=== PATIENT | male | born 1985 | race African-American/Black ===

== ENCOUNTER 2018-12-10 13:05 | Emergency (ER) | payer OTHER ==
[~2018-12-10] VITALS: Ht 175.3 cm; Wt 75.3 kg
[2018-12-10 14:04] LABS: BASO % 0.4 % (0.0-1.0); EOS # 0.1 10^3/uL (0.0-0.50); EOS % 0.7 % (0.0-3.0); HEMATOCRIT 35.8 % (42.0-52.0); HEMOGLOBIN 11.8 g/dl (13.5-17.5); LYMPH # 0.8 10^3/uL (1.5-4.5); LYMPH % 10.6 % (24.0-44.0); MEAN CORPUSCULAR HEMOGLOBIN 25.4 pg (27.0-33.0); MEAN CORPUSCULAR VOLUME 77.2 fl (80.0-96.0); MONO # 0.9 10^3/uL (0.0-0.8); MONO % 12.4 % (0.0-5.0); NEUTROPHILS # 5.7 10^3/uL (1.8-7.7); NEUTROPHILS % 75.5 % (36.0-66.0); PLATELET COUNT, AUTOMATED 190 10^3/uL (150-450); RED BLOOD COUNT 4.64 10^6/uL (4.30-6.10); WHITE BLOOD COUNT 7.5 10^3/uL (4.0-10.0)
[2018-12-10] MEDS ORDERED: NS 1,000 ML IV ONE (14:15)
[2018-12-10] MEDS ORDERED: KETOROLAC 30 MG/ML VIAL (J1885) IV ONE (14:15)
[2018-12-10 14:27] LABS: ALT/SGPT 39 U/L (12-78); AMYLASE 54 U/L (25-115); BILIRUBIN,DIRECT 0.2 MG/DL (0.0-0.2); BILIRUBIN,TOTAL 0.5 MG/DL (0.2-1.0); BLOOD UREA NITROGEN 8 MG/DL (7-18); CALCIUM LEVEL 8.9 MG/DL (8.5-10.1); CARBON DIOXIDE LEVEL 27 MEQ/L (21-32); CHLORIDE LEVEL 109 MEQ/L (98-107); GLOMERULAR FILTRATION RATE > 60.0 (>60); GLUCOSE, FASTING 92 MG/DL (70-100); LIPASE 75 U/L (73-393); SODIUM LEVEL 140 MEQ/L (136-145)
--- NOTE | 2018-12-10 15:23 | REP ---
REASON: Right upper quadrant pain and right flank pain with hematuria. PRIORS: None. Lung bases are clear. Limited evaluation of the solid intra-abdominal organs and gallbladder shows no gross abnormalities. There is no nephroureterolithiasis, hydronephrosis or hydroureter. There are no urinary bladder calcifications. No free fluid or free air is seen in the abdomen or pelvis. Limited evaluation of the intra-abdominal and intrapelvic bowel loops and their mesenteries show no gross abnormalities. Limited evaluation of the abdominal aorta and paraaortic regions show no gross abnormalities. There is no evidence of an intra-abdominal or intrapelvic mass or adenopathy. Limited evaluation of the pancreas and adrenal glands show no gross abnormalities. Bone window technique throughout the entire exam shows the osseous structures to be within normal limits. IMPRESSION: CT findings are within normal limits. Although seen in a limited fashion due to the lack of oral bowel preparatory contrast and intravenous administration. Electronically Signed by Jeanmarie Srinivasan DO 12/10/2018 04:28 P
[2018-12-10 16:25] VITALS: BP 119/60
== END 2018-12-10 16:29 | disposition home or self-care (01) ==
LOC: M ED 13:05
DX: S39.011A Strain of muscle, fascia and tendon of abdomen, initial encounter (principal); X58.XXXA Exposure to other specified factors, initial encounter; Y92.89 Other specified places as the place of occurrence of the external cause; F17.210 Nicotine dependence, cigarettes, uncomplicated
CPT/HCPCS: 74176; 80048; 80076; 81001; 82150; 83690; 85025; 96361; 96374; 99284; J1885

== ENCOUNTER 2018-12-14 14:18 | Emergency (ER) | payer OTHER ==
[~2018-12-14] VITALS: Ht 175.3 cm; Wt 68.2 kg
[2018-12-14 14:18] VITALS: BP 138/88
== END 2018-12-14 17:01 | disposition left against medical advice (07) ==
LOC: M ED 14:18
DX: Z53.21 Procedure and treatment not carried out due to patient leaving prior to being seen by health care provider (principal)

== ENCOUNTER → 2020-09-29 | Outpatient (CLI) | payer OTHER ==
--- NOTE | 2020-10-01 11:48 | REP ---
INDICATION: ABD PAIN TECHNIQUE: Real time B-mode babb scale ultrasound examination using curved array transducer. FINDINGS: Liver, spleen, and pancreas are normal in contour, size, echogenicity, and overall appearance. No focal hepatic, splenic or pancreatic lesions are identified. Gallbladder is normal without gallstones, wall thickening, or pericholecystic fluid. No biliary ductal dilatation is appreciated and the common bile duct measures 4.9 mm in diameter. The bilateral kidneys are normal in reniform shape without hydronephrosis or obvious abnormality. Right kidney measures 11.0 x 5.5 x 4.5 cm. Left kidney measures 11.2 x 5.4 x 6.0 cm. Abdominal aorta appears normal. No obvious ascites. IMPRESSION: Essentially normal age-appropriate complete abdominal ultrasound. <Electronically signed by Jensen Mckeon > 10/01/20 [id number]
== END ==
LOC: M RAD 09:41
PROVIDERS: ATTEND Nurse Practitioner Primary Care
DX: R10.9 Unspecified abdominal pain (principal)